=== PATIENT | female | born 1990 | race Caucasian/White ===

== ENCOUNTER 2017-01-11 20:30 | Emergency (ER) | payer MEDICAID | END 2017-01-11 20:31 | disposition left against medical advice (07) | LOC: D.ER 20:30 | DX: Z02.9 Encounter for administrative examinations, unspecified (principal) ==

== ENCOUNTER → 2017-01-11 21:03 | Outpatient (CLI) | payer MEDICAID ==
[2017-01-11 21:41] LABS: APPEARANCE HAZY (CLEAR); BILIRUBIN NEGATIVE (NEGATIVE); COLOR YELLOW (YELLOW); GLUCOSE NEGATIVE (NEGATIVE); KETONE SMALL mg/dL (NEGATIVE); LEUKOCYTE ESTERASE 1+ (NEGATIVE); NITRITE NEGATIVE (NEGATIVE); PROTEIN NEGATIVE (NEGATIVE); SPECIFIC GRAVITY 1.015 (1.005-1.020); UROBILINOGEN NORMAL (NORMAL)
[2017-01-11 21:44] LABS: BACTERIA MANY /hpf (NONE SEEN); EPITHELIAL CELLS 0-5 /hpf (0-5); RED CELLS - URINE 0-5 /hpf (0-5); WHITE CELLS - URINE 0-5 /hpf (0-5)
== END | disposition home or self-care (01) ==
LOC: D.LDO 21:03
PROVIDERS: Obstetrics & Gynecology
DX: Z34.82 Encounter for supervision of other normal pregnancy, second trimester (principal); Z3A.27 27 weeks gestation of pregnancy; R10.9 Unspecified abdominal pain

== ENCOUNTER → 2017-02-28 09:59 | Outpatient (CLI) | payer MEDICAID ==
[~2017-02-28 09:59] MED LIST: MACROBID100 MG PO; PRENATAL COMPLE1 TAB PO
[2017-02-28 11:19] LABS: APPEARANCE CLEAR (CLEAR); BACTERIA MODERATE /hpf (NONE SEEN); BILIRUBIN NEGATIVE (NEGATIVE); COLOR YELLOW (YELLOW); GLUCOSE NEGATIVE (NEGATIVE); KETONE NEGATIVE (NEGATIVE); LEUKOCYTE ESTERASE 1+ (NEGATIVE); NITRITE NEGATIVE (NEGATIVE); PROTEIN NEGATIVE (NEGATIVE); SPECIFIC GRAVITY 1.005 (1.005-1.020); UROBILINOGEN NORMAL (NORMAL)
== END | disposition home or self-care (01) ==
LOC: D.LDO 09:59
PROVIDERS: Obstetrics & Gynecology
DX: O36.8130 Decreased fetal movements, third trimester, not applicable or unspecified (principal); Z3A.34 34 weeks gestation of pregnancy

== ENCOUNTER 2017-04-02 20:17 | Outpatient (CLI) | payer MEDICAID ==
[2017-04-02 20:40] LABS: APPEARANCE CLEAR (CLEAR); BILIRUBIN NEGATIVE (NEGATIVE); COLOR YELLOW (YELLOW); GLUCOSE NEGATIVE (NEGATIVE); KETONE NEGATIVE (NEGATIVE); LEUKOCYTE ESTERASE TRACE (NEGATIVE); NITRITE NEGATIVE (NEGATIVE); PROTEIN NEGATIVE (NEGATIVE); UROBILINOGEN NORMAL (NORMAL)
[2017-04-02 20:42] LABS: RED CELLS - URINE OCC /hpf (0-5); WHITE CELLS - URINE 0-5 /hpf (0-5)
[2017-04-03 07:52] VITALS: BMI 27.2
== END 2017-04-02 22:20 | disposition home or self-care (01) ==
LOC: D.LDO 20:17
PROVIDERS: Obstetrics & Gynecology
DX: O26.893 Other specified pregnancy related conditions, third trimester (principal); Z3A.39 39 weeks gestation of pregnancy; R30.0 Dysuria; R35.0 Frequency of micturition

== ENCOUNTER 2017-04-03 06:53 | Inpatient (IN) | payer MEDICAID ==
[~2017-04-03] VITALS: Ht 152.4 cm; Wt 63.0 kg
[2017-04-03] VITALS (16 sets, daily range): BP systolic 97–141; BP diastolic 54–84; Ht 152.4 cm; Wt 63.0 kg
[2017-04-03 07:58] LABS: HEMATOCRIT 41.4 % (36.0-48.0); HEMOGLOBIN 14.3 g/dL (12-16); MCH 31.8 pg (26.0-34.0); MCHC 34.5 g/dL (31.0-37.0); MEAN PLATELET VOLUME 11.5 fL (7.4-10.4); RBC 4.5 10x6/uL (4.00-5.40); RDW 13.3 % (11.5-14.5); WBC 15.5 10x3/uL (4.8-10.8)
--- NOTE | 2017-04-03 09:22 | NUR ---
baby born at 0851 1grk6cg 19.5 inch.
--- NOTE | 2017-04-03 10:00 | NUR ---
RECEIVED PT FROM VIA BED TO ROOM 1273. BED LOCKED AND PLACED IN LOW POSITION. VSS. PT AWAKE. AAO X 3. FUNDUS FIRM AT U/U. RUBRA LOCHIA MOD AMT. SMALL QUARTER SIZED CLOT NOTED ON PERIPAD. PIV SITE CLEAR TO RIGHT FOREARM. NS WITH PITOCIN 20 UNITS INFUSING. PLACED ON ALARIS PUMP AT 125 ML/HR. PT DENIES PAIN. ABDOMINAL INCISION WITH STERISTRIPS WITHOUT REDNESS, SWELLING OR DRAINAGE NOTED. ICE PACK TO INCISION. PT UNABLE TO MOVE LEGS. SCDS ON BLE. PUMP ON. ALLEN TO GRAVITY DRAINING CLEAR, YELLOW URINE. PT INSTRUCTED ON USE OF INCENTIVE SPIROMETER. PT PULLS 2500. ICE CHIPS PROVIDED TO PT. ORIENTED TO ROOM, BED, AND CALL LIGHT. ALL TRANSLATION PER HIMANSHU.
--- NOTE | 2017-04-03 10:19 | NUR ---
DEMEROL EDGERMAN STARTED ORDERED. PT INSTRUCTED ON MEDICATION AND USE OF BUTTON. PT DEMONSTRATES UNDERSTANDING.
--- NOTE | 2017-04-03 10:31 | NUR ---
FUNDUS FIRM AT U/U. RUBRA LOCHIA SMALL AMT. NO CLOTS. PERIPAD CHANGED. ICE PACK CONTINUES TO INCISION. INCISION WITHOUT REDNESS, SWELLING OR DRAINAGE NOTED. PT DENIES PAIN. FAMILY WITH PT.
--- NOTE | 2017-04-03 11:12 | NUR ---
PT LYING SUPINE IN BED. CONSUMING ICE CHIPS WITHOUT NAUSEA. STATES PAIN NOW "3" ON 0-10 PAIN SCALE. STATES PAIN MEDICATION HELPING WITH PAIN. PT PROVIDED ICE WATER AT REQUEST. VOICES NO OTHER C/O OR NEEDS.
--- NOTE | 2017-04-03 12:35 | NUR ---
PT SITTING UP IN BED. INFANT. FUNDUS FIRM AT U/U. RUBRA LOCHIA SMALL AMT. PERIPAD CHANGED. INCISION WITH STERISTRIPS. NO DRAINAGE, REDNESS OR SWELLING NOTED.
--- NOTE | 2017-04-03 14:18 | NUR ---
PT C/O INCISIONAL PAIN OF "6" ON 0-10 PAIN SCALE. TORADOL 30 MG GIVEN SIVP OVER 2 MINUTES. PT INSTRUCTED ON MED. VERBALIZES UNDERSTANDING.
--- NOTE | 2017-04-03 18:00 | NUR ---
PT SITTING UP IN BED. HOLDS WITH MUCH WARMTH SHOWN. VS NOTED. PT DENIES PAIN AT THIS TIME. STATES MEAT TEAM MEMBER RELIEVING PAIN. FUNDUS FIRM AT U/U. RUBRA LOCHIA SMALL AMT. PERIPAD CHANGED. ABDOMINAL INCISION WITH STERISTRIPS. NO DRAINAGE, REDNESS, OR SWELLING NOTED. I/O COMPLETED. PT REQUESTS AND RECEIVES WATER.
--- NOTE | 2017-04-03 18:56 | NUR ---
REPORT GIVEN TO ON-COMING SHIFT
--- NOTE | 2017-04-03 19:36 | NUR ---
RCVD PT FROM AM SHIFT. PT LYING IN LT TILT WITH PILLOW @ BACK FOR SUPPORT. AA0X3. PT REPORTS PAIN 7/10 IN ABD JUST ON RT SIDE. 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 LUNGS CLEAR & UNLABORED X2. HR-RRR, PPP. PIV TO RT FOREARM PATENT WITH NO SIGNS OF ERYTHEMA OR EDEMA. NS WITH 20 U PITOCIN INFUSING @ 125ML/HR AND RESEARCH GREENHOUSE SUPERVISOR IS IN USE. SEE EMAR. FUNDUS FIRM, U/U, ML. SMALL LOCHIA RUBRA NOTED ON PERIPAD. NO EDEMA NOTED TO BLE. SCD'S ON BLE AND FUNCTIONING PROPERLY. 110ML DARK YELLOW URINE EMPTIED FROM UROMETER. PT'S PROBATE CLERK WILL BE BACK @ 10:30 AND PLANS TO D/C ALLEN DISCUSSED WITH PT. PT NODS HEAD AND IS AGREEABLE. WILL CONT. TO MONITOR. BED LOW, WHEELS LOCKED, SIDE RAILS UP X2, CL IN REACH.
--- NOTE | 2017-04-03 20:58 | NUR ---
PT RATES PAIN 5/10 CURRENTLY. PT'S OIL WELL DRILLER COMPLETE. ADV PT WILL SWITCH TO PO MEDS NOW. PT VERBALIZES UNDERSTANDING. PT CURRENTLY BREASFEEDING . WILL RETURN TO REMOVE ALLEN WHEN PT FINISHED. PT DENIES FURTHER NEEDS AT THIS TIME.
--- NOTE | 2017-04-03 21:30 | NUR ---
ROUNDS MADE. INFANT IN OPEN CRIB AT BEDSIDE WITH FOB STANDING OVER CRIB. PIV SL AT THIS TIME. 30 ML DARK YELLOW URINE EMPTIED FROM ALLEN CATH. ALLEN CATH D/C'D AT THIS TIME WITH CATH TIP INTACT. PT CUBA. WELL. ADV PT TO CALL FOR ASSISTANCE BEFORE AMB TO BATHROOM. PT VERBALIZED UNDERSTANDING. NEW ICE PACK PROVIDED FOR INCISION AREA. PT DENIES FURTHER NEEDS.
--- NOTE | 2017-04-03 22:51 | NUR ---
ROUNDS MADE. PT REPORTS NEED TO VOID. SCD'S OFF. PT ASSISTED TO SITTING ON SIDE OF BED. NO C/O DIZZINESS. PT AMB TO BATHROOM WITH MINIMAL ASSISTANCE. STEADY GAIT NOTED. PT VOIDS 30 ML BLOOD TINTED URINE INTO [place] HAT. CLEAN PANTIES AND PERIPADS PROVIDED. BEDDING CHANGED AT THIS TIME. PT RATES PAIN 8/10 CURRENLTY AND REQUEST MEDICATION. WILL RETURN WITH SAME.
--- NOTE | 2017-04-03 23:15 | NUR ---
DEMEROL 50MG X1 TAB GIVEN FOR PAIN RATED 8/10. PT DENIES FURTHER NEEDS AT THIS TIME. WILL CONT. TO MONITOR.
--- NOTE | 2017-04-04 00:04 | NUR ---
PAIN REASSESSMENT COMPLETE. PT AT THIS TIME. PT VERBALIZES PAIN IS "A LITTLE BETTER." DENIES NEEDS AT THIS TIME. LIGHT TURNED OFF PER PT REQUEST.
[2017-04-04 00:28] VITALS: BP 103/56
--- NOTE | 2017-04-04 00:28 | NUR ---
PT LYING ON BACK, HOB 45 DEGREES. PT CONTINUES TO BREASTFEED . VSS. PT DENIES NEED TO VOID. ADV PT WILL NEED TO USE CATH IF PT UNABLE TO VOID BY 0130. PT VERBALIZED UNDERSTANDING AND DENIES FURTHER NEEDS.
--- NOTE | 2017-04-04 02:34 | NUR ---
ROUNDS MADE. PT UP TO BATHROOM. VOIDS 50ML CLEAR YELLOW URINE. PT REPORTS ONLY DRINKING 2 OZ OF WATER SINCE CUP WAS BROUGHT TO HER BY DAY SHIFT. ADV PT AND S.O. THAT SHE NEEDS TO DRINK 2 FULL CUPS OF WATER AND BE ABLE TO VOID. PT VERBALIZED UNDERSTANDING. CLEAN PERIPADS PROVIDED. PT ASSISTED BACK TO BED. SCD'S REMAIN OFF TO ALLOW PT TO AMB TO BATHROOM EASILY WITHOUT ASSISTANCE. TRANSPORTED TO ROOM VIA OPEN CRIB PER Rabia VILLAR RN. HANDED TO MOTHER FOR FEEDING. PT DENIES FURTHER NEEDS AT THIS TIME.
--- NOTE | 2017-04-04 03:41 | NUR ---
BLANKET AND ICE PACK PROVIDED TO PT. ADV PT SHE DOES NOT HAVE TO WAIT ON ME TO GO PEE, BUT TO PEE IN THE [place] HAT. PT VERBALIZED UNDERSTANDING AND DENIES FURTHER NEEDS AT THIS TIME. FOB REMAINS AT BEDSIDE. IN OPEN CRIB.
--- NOTE | 2017-04-04 04:03 | NUR ---
MOTRIN 600MG X1 TAB AND DEMEROL 50MG X1 TAB GIVEN FOR PAIN RATED 5/10 AT THIS TIME. PT DENIES FURTHER NEEDS. WILL CONT. POC.
--- NOTE | 2017-04-04 05:03 | NUR ---
PAIN REASSESSMENT COMPLETE. PT RATES PAIN 5/10 IN ABD WITH NO CHANGE IN PAIN WITH MEDICATIONS. PT VERBALIZES "A LITTLE BETTER, BUT STILL HURTS ON RIGHT SIDE." CUP OF WATER REFRESHED. PT DENIES FURTHER NEEDS.
[2017-04-04 05:52] LABS: MCH 31.3 pg (26.0-34.0); MCHC 33.6 g/dL (31.0-37.0); MCV 93.3 fL (80.0-100.0); MEAN PLATELET VOLUME 10.6 fL (7.4-10.4); RDW 13.4 % (11.5-14.5)
[2017-04-04 05:55] LABS: HEMATOCRIT 26.5 % (36.0-48.0); HEMOGLOBIN 8.9 g/dL (12-16); RBC 2.84 10x6/uL (4.00-5.40); WBC 11.1 10x3/uL (4.8-10.8)
--- NOTE | 2017-04-04 06:30 | NUR ---
PT SITTING UP ON SIDE OF BED . PT REPORTS "PAIN IS MUCH BETTER." PT VOIDED 600ML CLEAR YELLOW URINE IN [place] HAT. REQUESTS & RECEIVES MORE WATER. DENIES FURTHER NEEDS AT THIS TIME.
--- NOTE | 2017-04-04 06:59 | NUR ---
REPORT GIVEN TO DR RODRIGEZ ON PT'S H&H RESULTS. PER DR RODRIGEZ ORDER REPEAT LEVEL CHECK.
[2017-04-04 07:14] LABS: HEMATOCRIT 23.6 % (36.0-48.0); HEMOGLOBIN 8.1 g/dL (12-16); MCH 31.8 pg (26.0-34.0); MCHC 34.3 g/dL (31.0-37.0); MCV 92.5 fL (80.0-100.0); MEAN PLATELET VOLUME 10.4 fL (7.4-10.4); RBC 2.55 10x6/uL (4.00-5.40); RDW 13.3 % (11.5-14.5); WBC 10.5 10x3/uL (4.8-10.8)
[2017-04-04 07:30] VITALS: BP 106/64
--- NOTE | 2017-04-04 07:30 | NUR ---
PT WAS RECEIVED IN LABOR AND DELIVERY. SHE IS SITTING UP IN BED, HOLDING BABY. SHE OFFERS NO COMPLAINTS THIS AM. RICHIE, RN AT BEDSIDE WITH SORTER UPHOLSTERY PARTS TO TRANSLATE AND LET THEM KNOW WE WILL BE MOVING TO THE WOMEN'S FLOOR SOON. HER WAS INSTRUCTED TO GATHER UP HER THINGS AND WE WILL MOVE THEM TO HER NEW ROOM. GEN- AWAKE AND ALERT. LUNGS- CLEAR. HEART- RRR. ABD- SOFT WITH TENDERNESS NOTED. FUNDUS FIRM AT U 2. HOWIE PAD WITH SMALL LOCIA RUBRA. EXT WITH NO EDEMA. BED IS LOW, SIDE RAILS UP X 2 AND CALL LIGHT IN REACH. PT HAS BEEN UP TO BATHROOM VOIDING. SHE IS TOLERATING DIET.
[2017-04-04 08:20] LABS: RAPID PLASMA REAGIN Non Reactive (Non Reactive)
--- NOTE | 2017-04-04 09:00 | NUR ---
PT WAS TRANSFERRED TO WOMEN'S FLOOR ROOM 1223. PT IN BED. SIDE RAILS UP X 2, CALL LIGHT IN REACH AND BED IS LOW.
--- NOTE | 2017-04-04 09:21 | NUR ---
PT WAS GIVEN MYLICON FOR GAS AND DEMERAOL 50 MG 1 PO FOR PAIN OF 7 OUT OF 10. SHE OFFERS NO OTHER COMPLAINTS. FAMILY MEMBER AT BEDSIDE THAT SPEAKS INDONESIAN. BED IS LOW, SIDE RAILS UP X 2 AND CALL LIGHT IN REACH.
--- NOTE | 2017-04-04 09:55 | NUR ---
DR RODRIGEZ IS HERE TO SEE PT. DISCUSSED NEW LAB H&H THAT WAS REPEATED THIS AM. DR RODRIGEZ WAS WORRIED THAT INITIAL LAB WAS ABNORMAL. SHE INSTRUCTED PT TOP LET US KNOW IF SHE HAS ANY DIZZINESS.
--- NOTE | 2017-04-04 11:39 | NUR ---
GAVE PT MOTRIN 600 MG SINCE HER PAIN HAS NOT IMPROVED MUCH SINCE GIVING HER DEMEROL. HER FRIEND IS STILL AT BEDSIDE AND ABLE TO TRANSLATE FOR US. SHE IS AT THIS TIME.
--- NOTE | 2017-04-04 13:34 | NUR ---
PT IS SITTING UP IN BED. WANTING TO TAKE A SHOWER BUT SHE WANTS TO WAIT UNTIL HER GETS BACK. INSRUCTED HER ON INCISION CARE.
--- NOTE | 2017-04-04 15:32 | NUR ---
PT TOOK SHOWER AND TOLERATED WELL SALINE LOCK WAS COVERED TO KEEP DRY. COVER WAS REMOVED. SALINE LOCK PATENT LEFT FOREARM. SHE IS NOW UP AMBULATING IN HALLWAY WITH HER . SHE OFFERS NO COMPLAINTS.
--- NOTE | 2017-04-04 19:41 | NUR ---
PM ROUNDS MADE, PT RESTING, FOB AND BABY AT BEDSIDE, INFORMED PT THAT I WILL BE BACK SHORTLY TO DO ASSESSMENT, PT VERBALIZES UNDERSTANDING, DENIES NEEDS AT THIS TIME
[2017-04-04 20:17] VITALS: BP 94/63
--- NOTE | 2017-04-04 20:17 | NUR ---
ASSESSMENT PER FLOW SHEET, VS OBTAINED, SALINE LOCK IN RIGHT FA INTACT WITH NO REDNESS OR EDEMA, FF, U/U, ML, LITE BLEEDING NOTED WITH NO CLOTS, BIKINI INC WITH STERI STRIPS CDI WITH NO DRAINAGE NOTED, PT DENIES FLATUS, NO BM AND VOIDING WITH NO DIFFICULTY, PT C/O CRAMPING AND INC PAIN, WILL ADM PAIN MED
--- NOTE | 2017-04-04 20:33 | NUR ---
ADM MOTRIN AND DEMEROL PO PER MD ORDERS, SEE EMAR, WITH FRESH WATER, PT DENIES FURTHER NEEDS, FOB AND BABY AT BEDSIDE, TRASH REMOVED
--- NOTE | 2017-04-04 21:22 | NUR ---
PT HOLDING BABY, DENIES NEEDS OR PAIN AT THIS TIME, FOB AT BEDSIDE
[2017-04-04 23:31] VITALS: BP 102/66
--- NOTE | 2017-04-04 23:31 | NUR ---
PT AWAKE, VS OBTAINED, PT DENIES PAIN, BUT C/O GAS, PT REPORTS WALKING AROUND IN ROOM, PT INST TO WALK IN HALLWAY, ADM MYLICON PO PER MD ORDERS, SEE EMAR, PT DENIES FURTHER NEEDS AT THIS TIME, FOB AND BABY AT BEDSIDE
--- NOTE | 2017-04-05 00:15 | NUR ---
PT HOLDING FEEDING BABY, DENIES NEEDS OR PAIN AT THIS TIME
--- NOTE | 2017-04-05 03:35 | NUR ---
PT RESTING, FOB CHANGING BABIES DIAPER, DENIES NEED FOR PAIN MED AT THIS TIME, DENIES NEEDS
--- NOTE | 2017-04-05 05:00 | NUR ---
PT AWAKE, VS OBTAINED, PT DENIES NEED FOR PAIN MED OR ANY NEEDS AT THIS TIME, FOB AND BABY AT BEDSIDE
[2017-04-05 05:18] VITALS: BP 99/61
[2017-04-05 05:35] LABS: HEMATOCRIT 20.7 % (36.0-48.0); MCH 31.2 pg (26.0-34.0); MCHC 33.3 g/dL (31.0-37.0); MCV 93.7 fL (80.0-100.0); MEAN PLATELET VOLUME 10.7 fL (7.4-10.4); RBC 2.21 10x6/uL (4.00-5.40); RDW 13.4 % (11.5-14.5); WBC 9.9 10x3/uL (4.8-10.8)
[2017-04-05 05:47] LABS: HEMOGLOBIN 6.9 g/dL (12-16)
--- NOTE | 2017-04-05 07:00 | NUR ---
SHIFT REPORT TO LILIAN MARAVILLA RN
[2017-04-05 07:15] VITALS: BP 102/68
--- NOTE | 2017-04-05 07:30 | NUR ---
PT IS LYING IN BED. OFFERS NO COMPLAINTS. HER H&H DROPPED MORE THIS AM. BLOOD TRANSFUSION WAS STARTED WITH BEATRIZ BUCIO RN. GEN- AWAKE AND ALERT. LUNGS- CLEAR. HEART- RRR. ABD- SOFT WITH TENDERNESS. LOW TRANSVERSE INCISION WITH STERI STRIPS- CLEAN AND DRY. SMALL LOCIA RUBRA. EXT- NO EDEMA NOTED. BED IS LOW. SIDE RAILS UP X 2 AND CALL LIGHT IN REACH.
--- NOTE | 2017-04-05 08:30 | NUR ---
PT IS TOLERATING BLOOD TRANSFUSION VSS. PT OFFERS NO COMPLAINTS.
--- NOTE | 2017-04-05 09:05 | NUR ---
PT IS SITTING UP IN BED. AT BEDSIDE. BLOOD TRANSFUSION CONTINUES, VSS. PT OFFERS NO COMPLAINTS.
--- NOTE | 2017-04-05 09:50 | NUR ---
IST UNIT OF BLOOD TRANSFUSED. VSS. PT HAS HAD NO ADVERSE REACTIONS.
--- NOTE | 2017-04-05 11:00 | NUR ---
2ND UNIT OF BLOOD INITIATED. VSS. AFEBRILE. PT OFFERS NO COMPLAINTS.
--- NOTE | 2017-04-05 13:29 | NUR ---
PT IS USING BREAST PUMP. PTS 2ND UNIT OF BLOOD IS ALMOST COMPLETE. PT HAS TOLERATED WELL. VSS.
--- NOTE | 2017-04-05 14:00 | NUR ---
TALKED TO DR RODRIGEZ. SHE WANTS PT TO HAVE A HEMOGRAM POST 2ND UNIT OF PRBC'S. SHE WANTS HER TO HAVE ANOTHER UNIT OF PRBC'S THEN REPEAT HEMOGRAM ONE HOUR AFTER 3RD UNIT IS GIVEN.
[2017-04-05 15:11] LABS: MCH 32.3 pg (26.0-34.0); MCHC 34.8 g/dL (31.0-37.0); MCV 92.6 fL (80.0-100.0); MEAN PLATELET VOLUME 10.5 fL (7.4-10.4); RDW 14.2 % (11.5-14.5); WBC 10.2 10x3/uL (4.8-10.8)
[2017-04-05 15:12] LABS: HEMATOCRIT 28.7 % (36.0-48.0); RBC 3.1 10x6/uL (4.00-5.40)
--- NOTE | 2017-04-05 15:15 | NUR ---
3RD UNIT OF PRBC'S WAS STARTED WITH CARMINE CHU. VSS.
--- NOTE | 2017-04-05 16:13 | NUR ---
DR RODRIGEZ CALLED TO CHECK ON PT. HER HGB IS 10 AND HER HCT IS 28.7. PT LOOKS BETTER TO ME.
--- NOTE | 2017-04-05 17:29 | NUR ---
PT UP TO BATHROOM. OFFERS NO COMPLAINTS. AT BEDSIDE.
--- NOTE | 2017-04-05 18:00 | NUR ---
BLOOD TRANSFUSION ENDED. ORDERED HEMOGRAM FOR 1 HR POST OP.
--- NOTE | 2017-04-05 18:47 | NUR ---
NOTED A RASH AROUND NECK WHICH ARE SMALL RED WHELPS. ALSO NOTED IN ARMPITS. RASH NOT NOTED ANYWHERE ELSE. HER BREAST ARE ALSO RED AND WARM TO TOUCH. I CALLED DR RODRIGEZ AND REPORTED THESE FINDINGS. SHE STATES TO GIVE HER BENADRYL 50 MG IV NOW AND Q 4 HRS UNTIL RASH IS GONE.
[2017-04-05 19:10] VITALS: BP 118/80
--- NOTE | 2017-04-05 19:10 | NUR ---
PT RECEIVED SITTING UP IN BED WITH IN ARMS AT THIS TIME AAOX3. VSS. PT RATES PAIN 4/10. S/L NOTED TO RIGHT FOREARM AT THIS TIME. DRESSING CDI. FLUSHED WITH NS AND ADMINISTERED BENADRYL IVP PER ORDERS FOR RASH ON PT NECK, AND BILATERAL ARMS. PT ALSO CONTINUES TO C/O ITCHING. HEART RRR. LUNG SOUNDS CLEAR BILATERALLY. BOWEL SOUNDS ACTIVE X4 QUADRENTS. ABDOMEN SOFT WITH TENDERNESS. LOW TRANSVERSE INCISION NOTED TO ABDOMEN WITH STERI STRIPS. NO REDNESS, SWELLING, OR PURULENT DRAINAGE NOTED. PT STATES LOCHIA HAS BEEN LIGHT THROUGHOUT THE DAY. FUNDUS FIRM AND MIDLINE U/3 PEDAL PULSES EQUAL BILATERALLY. SCDS NOTED TO BLE. PT REQUESTS ICE WATER AT THIS TIME. DENIES OTHER NEEDS. BED LOW. PHONE AND CALL LIGHT IN REACH. SRX2.
--- NOTE | 2017-04-05 19:44 | NUR ---
PT C/O DIZZINESS AT THIS TIME. VS REMAIN STABLE. CARMINE BRYANT TO BEDSIDE AT THIS TIME TO ASSESS PT STATUS. PT DENIES GETTING UP TO WALK TODAY. INSTRUCTED PT SHE NEEDS TO WALK MORE FREQUENTLY. WILL CONTINUE TO MONITOR.
[2017-04-05 19:45] LABS: HEMOGLOBIN 10.9 g/dL (12-16); MCHC 34.1 g/dL (31.0-37.0); MCV 90.9 fL (80.0-100.0); MEAN PLATELET VOLUME 9.9 fL (7.4-10.4); RBC 3.52 10x6/uL (4.00-5.40); RDW 14.8 % (11.5-14.5); WBC 11.4 10x3/uL (4.8-10.8)
--- NOTE | 2017-04-05 20:30 | NUR ---
PT UP AMBULATING HALLWAY AT THIS TIME. DENIES NEEDS. BED LOW. PHONE AND CALL LIGHT IN REACH. SRX2.
--- NOTE | 2017-04-05 21:53 | NUR ---
PT SITTING UP IN BED AT THIS TIME. RASH ON NECK AND BILATERAL ARMS HAS CLEARED UP AT THIS TIME AND PT DENIES ITCHING. DENIES NEEDS. BED LOW. PHONE AND CALL LIGHT IN REACH. SRX2.
[2017-04-05 23:38] VITALS: BP 111/57
--- NOTE | 2017-04-05 23:38 | NUR ---
PT SITTING UP IN BED HOLDING AT THIS TIME. VSS. PT DENIES NEEDS AT THIS TIME. BED LOW. PHONE AND CALL LIGHT IN REACH. SRX2.
--- NOTE | 2017-04-06 01:22 | NUR ---
PT SITTING UP IN BED AT THIS TIME. REQUESTS WATER. DENIES OTHER NEEDS. BED LOW. PHONE AND CALL LIGHT IN REACH. SRX2.
--- NOTE | 2017-04-06 03:40 | NUR ---
PT SITTING UP IN BED AT THIS TIME. PT DENIES NEEDS. BED LOW. PHONE AND CALL LIGHT IN REACH. SRX2.
[2017-04-06 04:32] VITALS: BP 98/71
--- NOTE | 2017-04-06 05:27 | NUR ---
PT RESTING QUIETLY AT THIS TIME WITH EYES CLOSED. RESPIRATIONS EVEN, NON-LABORED. NO ACUTE DISTRESS NOTED AT THIS TIME. BED LOW. PHONE AND CALL LIGHT IN REACH. SRX2.
[2017-04-06 06:29] LABS: HEMATOCRIT 30.2 % (36.0-48.0); HEMOGLOBIN 10.4 g/dL (12-16); MCHC 34.4 g/dL (31.0-37.0); MCV 90.1 fL (80.0-100.0); MEAN PLATELET VOLUME 10.2 fL (7.4-10.4); RBC 3.35 10x6/uL (4.00-5.40); RDW 14.9 % (11.5-14.5); WBC 8.8 10x3/uL (4.8-10.8)
[2017-04-06 07:15] VITALS: BP 97/60
--- NOTE | 2017-04-06 07:30 | NUR ---
PT WAS RECEIVED SITTING UP IN BED BABY. SHE OFFERS NO COMPLAINTS. STATES HER PAIN IS A 4. SALINE LOCK INTACT R WRIST AND PATENT. GEN- AWAKE AND ALERT, LUNGS- CLEAR. HEART- RRR. ABD- SOFT WITH TENDERNESS. LOW TRANSVERSE INCISION IS CLEAN AND CRUZ STERI STRIPS INTACT. LIGHT LOCIA RUBRA. EXT- NO EDEMA NOTED. BED IS LOW, SIDE RAILS UP X 2 AND CALL LIGHT IN REACH
--- NOTE | 2017-04-06 09:00 | NUR ---
PT IS UP WALKING AROUND IN ROOM. GETTING THINGS TOGETHER TO GO HOME.
[2017-04-06] MEDS ORDERED: MEPERIDINE HCL50 MG PO (10:09)
[2017-04-06] MEDS ORDERED: IBUPROFEN600 MG PO (10:09)
--- NOTE | 2017-04-06 10:45 | NUR ---
PT IS SITTING IN CHAIR HER BABY. SHE OFFERS NO COMPLAINTS.
--- NOTE | 2017-04-06 11:21 | NUR ---
DISCHARGE INSTRUCTIONS EXPLAINED TO PT AND A FRIEND OF HER TRANSLATED. FOLLOW UP APPTS AND PRESCRIPTIONS WERE GIVEM. HER AND FOB ARE GATHERING UP THEIR THINGS TO BE DISCHARGED HOME. HE WAS GIVEN WORK EXCUSE. HE STATES THAT HE IS GOING BACK TO WORK ON SUNDAY.
--- NOTE | 2017-04-06 12:31 | NUR ---
SALINE LOCK D'CD/ TIP INTACT.
--- NOTE | 2017-04-06 13:43 | NUR ---
PT WAS DISCHARGED TO HOME. SHE WAS TAKEN TO HER VEHICLE BY WHEELCHAIR.
== END 2017-04-06 13:43 | disposition home or self-care (01) | DRG 766 ==
LOC: D.LDO 06:53 → D.LD 07:21 → D.WS 04-04 08:30
PROVIDERS: ADMIT Obstetrics & Gynecology
PROC: 10D00Z1 Extraction of Products of Conception, Low, Open Approach (ICD-10-PCS; principal; 2017-04-03 08:00)
DX: O99.824 Streptococcus B carrier state complicating childbirth (principal); O34.219 Maternal care for unspecified type scar from previous cesarean delivery; Z3A.39 39 weeks gestation of pregnancy; Z37.0 Single live birth; O99.02 Anemia complicating childbirth; D64.89 Other specified anemias

== ENCOUNTER 2017-04-12 08:08 | Emergency (ER) | payer MEDICAID ==
[2017-04-03 07:52] VITALS: BMI 27.2
[~2017-04-12 08:08] MED LIST changes: +IBUPROFEN600 MG PO; +MEPERIDINE HCL50 MG PO
[2017-04-12 09:16] LABS: BASOPHILS 0.3 % (0-2); EOSINOPHILS 1.3 % (0-7); HEMATOCRIT 39.8 % (36.0-48.0); HEMOGLOBIN 13.6 g/dL (12-16); IMMATURE GRANULOCYTES 0.3 % (0-5); LYMPHOCYTES 11.9 % (15-50); MCH 31.7 pg (26.0-34.0); MCHC 34.2 g/dL (31.0-37.0); MCV 92.8 fL (80.0-100.0); MEAN PLATELET VOLUME 9.6 fL (7.4-10.4); MONOCYTES 7.6 % (2-11); NEUTROPHILS 78.6 % (40-80); RBC 4.29 10x6/uL (4.00-5.40); RDW 13.5 % (11.5-14.5); WBC 10.6 10x3/uL (4.8-10.8)
[2017-04-12 09:22] LABS: PLATELET COUNT 332 10x3/uL (130-400)
[2017-04-12 09:30] LABS: APPEARANCE CLEAR (CLEAR); COLOR YELLOW (YELLOW); GLUCOSE NEGATIVE (NEGATIVE); KETONE NEGATIVE (NEGATIVE); LEUKOCYTE ESTERASE 1+ (NEGATIVE); NITRITE NEGATIVE (NEGATIVE); PROTEIN NEGATIVE (NEGATIVE); UROBILINOGEN NORMAL (NORMAL)
[2017-04-12 09:31] LABS: BILIRUBIN NEGATIVE (NEGATIVE)
[2017-04-12 09:34] LABS: BACTERIA FEW /hpf (NONE SEEN); EPITHELIAL CELLS 0-5 /hpf (0-5); RED CELLS - URINE 0-5 /hpf (0-5); WHITE CELLS - URINE 0-5 /hpf (0-5)
[2017-04-12 09:58] LABS: ALBUMIN 3.1 g/dL (3.4-5.0); ALKALINE PHOSPHATASE 142 U/L (46-116); ALT (SGPT) 28 U/L (10-68); CALC OSMOLALITY 275 mosm/kg (275-300); CALCIUM 8.3 mg/dL (8.5-10.1); CARBON DIOXIDE 25.8 mmol/L (21.0-32.0); CHLORIDE - SERUM 103 mmol/L (98-107); CREATININE - SERUM 0.6 mg/dL (0.6-1.3); GLUCOSE 73 mg/dL (74-106); POTASSIUM - SERUM 3.8 mmol/L (3.5-5.1); PROTEIN - SERUM 6.7 g/dL (6.4-8.2); SODIUM 139 mmol/L (136-145); UREA NITROGEN 11 mg/dL (7-18); eGFR NON AFRICAN AMERICAN > 90 mL/min (90-120)
== END 2017-04-12 14:48 | disposition home or self-care (01) ==
LOC: D.ER 08:08
PROVIDERS: Emergency Medicine
DX: O90.89 Other complications of the puerperium, not elsewhere classified (principal)